=== PATIENT | female | born 1940 | race Caucasian/White ===

== ENCOUNTER 2017-11-14 22:01 | Inpatient (IN) | payer OTHER ==
[~2017-11-14] VITALS: Ht 165.1 cm; Wt 72.1 kg
[~2017-11-14 22:01] MED LIST: ALPRAZOLAM0.5 M4 PO; AUGMENTIN 875-1 EACH PO; MEDROL4 M2 PO
--- NOTE | 2017-11-14 22:05 | ED DYSPNEA/ASTHMA COMPLAINT ---
History of Present Illness General Chief Complaint: Dyspnea (COPD, CHF, Other) Stated Complaint: BIBA ASTHMA ATTACK Source: patient Exam Limitations: no limitations Vital Signs & Intake/Output Vital Signs & Intake/Output Vital Signs Date Time Temp Pulse Resp B/P B/P Pulse O2 O2 Flow FiO2 Mean Ox Delivery Rate 11/14 2230 90 11/14 2221 Nasal 2.0L Cannula 11/14 2218 24 89 Room Air 11/14 2207 98.2 115 20 149/77 92 Room Air ED Intake and Output 11/15 0000 11/14 1200 Intake Total Output Total Balance Patient 160 lb Weight Weight Reported by Patient Measurement Method Allergies Coded Allergies: No Known Allergies (03/22/16) Reconcile Medications Albuterol Sulfate (Ventolin Hfa) 90 MCG HFA.AER.AD 2 PUF INH AD PRN RESP. ( Reported) Albuterol Sulfate 2.5 MG/3 ML (0.083 %) VIAL.NEB 1 Vial INH/ARIANNA AD PRN RESP. (Reported) Cimetidine (Acid Go Go Dancer) (Unknown Strength) TABLET (Unknown Dose) PO PRN GI (Reported) Cod Liver Oil 1 EACH CAPSULE 1 CAP PO DAILY SUPPLEMENT (Reported) Meloxicam 7.5 MG TABLET 1 TAB PO DAILY PAIN/INFLAMMATION (Reported) Pantoprazole Sodium 40 MG TABLET.DR 1 TAB PO DAILY PRN GI (Reported) Triage Nurses Notes Reviewed? yes Onset: Gradual Duration: hour(s): Timing: recent history Severity: moderate Activities at Onset: "I was outside" Prior Episodes/Possible Cause: occasional episodes Modifying Factors: Improves With: rest. Associated Symptoms: cough, wheezing HPI: 77 yo woman h/o asthma h/o pollen allergies presents with cough,wheezing, dyspnea that began today. "I was outside this afternoon... the pollen is really bad around our home... I felt the wheezing and it was really hard to breath." No chest pain, phlegm, fever, lower extremity swelling. Past History Travel History Traveled to [place] past 21 day No Medical History Any Pertinent Medical History? 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 No Review of Systems Review of Systems Constitutional: Reports: no symptoms. EENTM: Reports: no symptoms. Respiratory: Reports: no symptoms. Cardiovascular: Reports: no symptoms. GI: Reports: no symptoms. Genitourinary: Reports: no symptoms. Musculoskeletal: Reports: no symptoms. Skin: Reports: no symptoms. Neurological/Psychological: Reports: no symptoms. Hematologic/Endocrine: Reports: no symptoms. Immunologic/Allergic: Reports: no symptoms. All Other Systems: Reviewed and Negative Physical Exam Physical Exam General Appearance: well developed/nourished, mild distress Head: atraumatic, normal appearance Eyes: Bilateral: normal appearance. Ears, Nose, Throat: normal pharynx, normal ENT inspection Neck: normal inspection, supple, full range of motion Respiratory: accessory muscle use, wheezing Comments: Review of Systems - except as otherwise noted in HPI Review of Systems Constitutional:no symptoms. EENTM:no symptoms. Respiratory:no symptoms. Cardiovascular:no symptoms. GI:no symptoms. Genitourinary:no symptoms. Musculoskeletal:no symptoms. Skin:no symptoms. Neurological/Psychological:no symptoms. Hematologic/Endocrine:no symptoms. Immunologic/Allergic:no symptoms. All Other Systems: Reviewed and Negative Physical Exam Physical Exam General Appearance: well developed/nourished, no apparent distress Head: atraumatic, normal appearance Eyes: Bilateral: normal appearance. Ears, Nose, Throat: normal pharynx, normal ENT inspection Neck: normal inspection, supple, full range of motion Respiratory: bilateral wheezing with prolonged expiratory phase. Cardiovascular: regular rate/rhythm Gastrointestinal: normal bowel sounds, soft, non-tender, no organomegaly Back: normal inspection, normal range of motion Extremities: normal inspection, normal capillary refill, normal range of motion, no edema Neurologic/Psych: no motor/sensory deficits, awake, alert, oriented x 3 Skin: intact, normal color, warm/dry Core Measures ACS in differential dx? No CVA/TIA Diagnosis No Sepsis Present: No Sepsis Focused Exam Completed? No Progress Differential Diagnosis: asthma, bronchitis, CHF, COPD Plan of Care: Orders Procedure Date/time Status Nothing by Mouth 11/15 B Active Saline Lock 11/15 42 Active Misc Message 11/15 42 Active ED Holding Orders 11/15 42 Active Admit to inpatient 11/15 42 Active Vital Signs 11/15 42 Active Code Status 05/26 0043 Active TROPONIN LEVEL 11/14 2204 Complete LIPASE 11/14 2204 Complete HEPATIC FUNCTION PANEL 11/14 2204 Complete CBC WITHOUT DIFFERENTIAL 11/14 2204 Complete BASIC METABOLIC PANEL 11/14 2204 Complete AMYLASE 11/14 2204 Complete EKG 11/14 2204 Active Laboratory Tests 11/14/172249: Anion Gap 13, Estimated GFR > 60, BUN/Creatinine Ratio 40.0 H, Glucose 134 H, Calcium 9.4, Total Bilirubin 0.5, Direct Bilirubin 0.2, AST 14, ALT 19, Alkaline Phosphatase 77, Troponin I 0.02, Total Protein 6.8, Albumin 3.9, Amylase 56, Lipase 133, CBC w Diff NO MAN DIFF REQ, RBC 4.74, MCV 93.8, MCH 31.5 H, MCHC 33.5, RDW 13.2, MPV 9.1, Gran % 84.7 H, Lymphocytes % 10.8 L, Monocytes % 3.5, Eosinophils % 0.7, Basophils % 0.3, Absolute Granulocytes 12.2 H, Absolute Lymphocytes 1.6, Absolute Monocytes 0.5, Absolute Eosinophils 0.1, Absolute Basophils 0 11/14/172204: D-Dimer High Sensitivty Cancelled Diagnostic Imaging: Viewed by Me: Radiology Read. Discussed w/RAD: Radiology Read. CXR Impression: PATIENT: ANAY MENDEZ PRESENT AGE : 77 PATIENT ACCOUNT NO: [id number] : 38 LOCATION: [facility] ORDERING PHYSICIAN: Sotero Arndt MD SERVICE DATE: 11/14/17 EXAM TYPE: RAD - XRY-PORTABLE CHEST XRAY EXAMINATION: CHEST 1 VIEW CLINICAL INFORMATION: Chest pain. COMPARISON: 01/26/2017. TECHNIQUE: An AP view of the chest is provided. FINDINGS: The cardiac silhouette is not enlarged. The mediastinal and hilar contours are unremarkable. There are neither pleural effusions nor pneumothoraces. There are no consolidations. The osseous structures are stable. IMPRESSION: No evidence for acute disease. DICTATED BY: Girish Neal MD DATE/ TIME DICTATED:11/14/172310 ARTS ADMINISTRATOR OR MANAGER:ANISA DATE/TIME TRANSCRIBED: 11/14/172310 CONFIDENTIAL, DO NOT COPY WITHOUT APPROPRIATE AUTHORIZATION. < Electronically signed in Other Vendor System> SIGNED BY: Girish Neal MD 11/14/17 4967 Initial ED EKG: sinus tach Departure Departure Disposition: STILL A PATIENT Condition: Stable Clinical Impression Primary Impression: Asthma exacerbation Referrals: Charlene Dunn MD (PCP/Family) Departure Forms: Customer Survey General Discharge Information Admission Note Spoke With: Norman Damian MD Documentation of Exam: Documentation of any treatments & extenuating circumstances including Concerns Regarding Discharge (functional status, medication knowledge or non-compliance, living conditions, etc.) that warrant an admission rather than observation: pt with asthma exacerbation, hypoxic to 89% on room air, merits steroids, nebs, 02 support, Critical Care Note Critical Care Note Critical Care Time: non-applicable
[2017-11-14] MEDS ORDERED: MELOXICAM7.5 M1 PO (22:24)
[2017-11-14] MEDS ORDERED: PANTOPRAZOLE SO40 M1 PO (22:24)
[2017-11-14] MEDS ORDERED: COD LIVER OIL1 EAC3 PO (22:25)
[2017-11-14] MEDS ORDERED: ACID REDUCER200 MG PO (22:25)
[2017-11-14] MEDS ORDERED: VENTOLIN HFA18 GM INH (22:25)
[2017-11-14] MEDS ORDERED: ALBUTEROL2.5 MG/3 M INH/SOL (22:26)
[2017-11-14 23:09] LABS: ABSOLUTE BASOPHIL COUNT 0 /CUMM (0.0-0.2); ABSOLUTE EOSINOPHIL COUNT 0.1 /CUMM (0.0-0.7); ABSOLUTE GRANULOCYTE CT 12.2 /CUMM (1.4-6.5); ABSOLUTE LYMPH COUNT 1.6 /CUMM (1.2-3.4); ABSOLUTE MONOCYTE COUNT 0.5 /CUMM (0.10-0.60); BASOPHIL % 0.3 % (0.0-2.0); EOSINOPHIL % 0.7 % (0-5); HEMATOCRIT 44.5 % (37-47); MEAN CORPUSCULAR HGB 31.5 PG (27.0-31.0); MEAN CORPUSCULAR HGB CONC 33.5 G/DL (33.0-37.0); MEAN CORPUSCULAR VOLUME 93.8 FL (81.0-99.0); MEAN PLATELET VOLUME 9.1 FL (7.4-10.4); PLATELET COUNT 237 /CUMM (130-400); RBC DISTRIBUTION WIDTH 13.2 % (11.5-14.5); RED BLOOD CELL CT 4.74 /CUMM (4.20-5.40); WHITE BLOOD CELL COUNT 14.4 /CUMM (4.8-10.8)
--- NOTE | 2017-11-14 23:15 | RADIOLOGY REPORT ---
EXAMINATION: CHEST 1 VIEW CLINICAL INFORMATION: Chest pain. COMPARISON: 01/26/2017. TECHNIQUE: An AP view of the chest is provided. FINDINGS: The cardiac silhouette is not enlarged. The mediastinal and hilar contours are unremarkable. There are neither pleural effusions nor pneumothoraces. There are no consolidations. The osseous structures are stable. IMPRESSION: No evidence for acute disease.
[2017-11-14 23:30] LABS: GRANULOCYTE % 84.7 % (42.2-75.2)
[2017-11-15 03:06] VITALS: BP 112/66
--- NOTE | 2017-11-15 03:13 | History & Physical ---
Maria G Varela 11/15/17 0312: General Information and HPI MD Statement: I have seen and personally examined ANAY MENDEZ and documented this H&P. The patient is a 77 year old F who presented with a patient stated chief complaint of [ASTHMA EXACERBATION ]. Source of Information: patient, family Exam Limitations: no limitations History of Present Illness: Patient is 77 years old female with PMH of asthma (diagnosed 2 years ago) and hiatal hernia came with a chief complain of runny nose, coughing, wheezing and difficifulty breathing that started yesterday. Patient states that she was doing well prior to that and feels that the pollen made her condition worse yesterday. She denies any fevers but reported of subjective chills. No sick contacts at home In ER her oxygen saturations were found to be 89 on room air so she was started on 2l of oxygen and her saturations came back up to 93 %. 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 Take no medication other than inhailers at home. Denies chest pain, headache, dizziness, abdominal discomfort, burning mituration. Patient hoever reported of one episode of loose stools last night. Allergies/Medications Allergies: Coded Allergies: No Known Allergies (03/22/16) Home Med list Albuterol Sulfate (Ventolin Hfa) 90 MCG HFA.AER.AD 2 PUF INH AD PRN RESP. ( Reported) Albuterol Sulfate 2.5 MG/3 ML (0.083 %) VIAL.NEB 1 Vial INH/ARIANNA AD PRN RESP. (Reported) Azithromycin 250 MG TABLET 1 TAB PO DAILY lungs . Budesonide/Formoterol Fumarate (Symbicort 80-4.5 Mcg Inhaler) 80 MCG-4.5 MCG/ ACTUATION HFA.AER.AD 2 PUF INH BID COPD . Cefuroxime Axetil (Cefuroxime) 500 MG TABLET 1 TAB PO BID Lungs . Cimetidine (Acid Certified Court/Medical Interpreter) 200 MG TABLET 1 TAB PO DAILY PRN GI (Reported) Cod Liver Oil 1 EACH CAPSULE 1 CAP PO DAILY SUPPLEMENT (Reported) Ergocalciferol (Vitamin D2) (Vitamin D2) 50,000 UNIT CAPSULE 1 CAP PO QW VIT D DEFICIENCY TAKE EVERY FRIDAY, ONCE A WEEK FOR 7 WEEKS THEN take OTC VIT D 2000 IU SUPPLEMENTS. Guaifenesin (Guaifenesin ER) 600 MG TAB.ER.12H 1 TAB PO Q12 PRN COUGH . Meloxicam 7.5 MG TABLET 1 TAB PO DAILY PAIN/INFLAMMATION (Reported) Pantoprazole Sodium 40 MG TABLET.DR 1 TAB PO DAILY PRN GI (Reported) Prednisone 10 MG TABLET 0 PO SEE ADMIN CRITERIA LUNGS . Tiotropium [place] (Spiriva) 18 MCG CAP.W.DEV 1 PUF INH DAILY SHORTNESS OF BREATH . 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 Home Services at Home: Oxygen Smoking Status: Former Smoker ETOH Use: denies use Review of Systems Review of Systems Constitutional: Reports: see HPI. Exam & Diagnostic Data Last 24 Hrs of Vital Signs/I&O Vital Signs Date Time Temp Pulse Resp B/P B/P Pulse O2 O2 Flow FiO2 Mean Ox Delivery Rate 11/15 0306 97.9 101 20 112/66 93 Nasal 2.0L Cannula 11/15 0300 93 Nasal 2.0L Cannula 11/15 0230 98.3 88 22 127/61 92 Nasal 2.0L Cannula 11/14 2230 90 11/14 2221 Nasal 2.0L Cannula 11/14 2218 24 89 Room Air 11/14 2207 98.2 115 20 149/77 92 Room Air Intake & Output 11/15 0800 11/15 0000 11/14 1600 Intake Total Output Total Balance Patient 77.196 kg 72.575 kg Weight Weight Bed scale Reported by Patient Measurement Method Physical Exam General Appearance Alert, Oriented X3, Cooperative, Mild Distress Skin No Breakdown Skin Temp/Moisture Exam: Warm/Dry HEENT Atraumatic, PERRLA Neck Supple Cardiovascular Regular Rate, Normal S1, Normal S2 Lungs diffuse b/l expiratory wheezes Abdomen Normal Bowel Sounds, Soft, No Tenderness Extremities No Edema Last 24 Hrs of Labs/Quique: Laboratory Tests 11/14/17 2250: Anion Gap 13, Estimated GFR > 60, BUN/Creatinine Ratio 40.0 H, Glucose 134 H, Calcium 9.4, Total Bilirubin 0.5, Direct Bilirubin 0.2, AST 14, ALT 19, Alkaline Phosphatase 77, Troponin I 0.02, Total Protein 6.8, Albumin 3.9, Amylase 56, Lipase 133, CBC w Diff NO MAN DIFF REQ, RBC 4.74, MCV 93.8, MCH 31.5 H, MCHC 33.5, RDW 13.2, MPV 9.1, Gran % 84.7 H, Lymphocytes % 10.8 L, Monocytes % 3.5, Eosinophils % 0.7, Basophils % 0.3, Absolute Granulocytes 12.2 H, Absolute Lymphocytes 1.6, Absolute Monocytes 0.5, Absolute Eosinophils 0.1, Absolute Basophils 0 11/14/17 2205: D-Dimer High Sensitivty Cancelled Assessment/Plan Assessment: Patient is 77 years old female with PMH of asthma (diagnosed 2 years ago) and hiatal hernia came with a chief complain of runny nose, coughing, wheezing and difficifulty breathing that started yesterday. Patient states that she was doing well prior to that and feels that the pollen made her condition worse yesterday. She denies any fevers but reported of subjective chills. No sick contacts at home In ER her oxygen saturations were found to be 89 on room air so she was started on 2l of oxygen and her saturations came back up to 93 %. 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 Take no medication other than inhailers at home. Denies chest pain, headache, dizziness, abdominal discomfort, burning mituration. Patient hoever reported of one episode of loose stools last night. labs and vitals as above CXR: No evidence for acute disease. Assessment and plan: Will admit the patient on GM floor, patient got 125 mg of solumedrol in ER, will continue 40 q8 and reassess in am. Will start her on IV fluids running at 75 cc/ hr. TRC nebs as needed, and will check peak flow Once stabalized, patient would most likly be discharged on PO prednisone taper. DVT ppx: alps and lovenox Patient is FC. As Ranked By This Provider Problem List: 1. Bronchitis 2. Dyspnea Core Measures/Misc (03/09) Acute Coronary Syndrome ACS Diagnosis: No Congestive Heart Failure Congestive Heart Failure Diagnosis No Cerebrovascular Accident CVA/TIA Diagnosis: No VTE (View Protocol) VTE Risk Factors Age>40 No Mechanical VTE Prophylaxis d/t N/A MechProphylax Ordered No VTE Pharm Prophylaxis d/t NA PharmProphylax ordered Sepsis (View protocol) Sepsis Present: No If YES complete Sepsis Event Note If YES complete Sepsis Event Note Rickie MENDEZ, [facility] 11/15/17 0543: Core Measures/Misc (03/09) Sepsis (View protocol) If YES complete Sepsis Event Note If YES complete Sepsis Event Note Attending MD Review Statement Attending Statement Attending MD Statement: examined this patient, discuss w/resident/PA/SAFETY PIN ASSEMBLING MACHINE OPERATOR, agreed w/resident/PA/SAFETY PIN ASSEMBLING MACHINE OPERATOR, discussed with family, reviewed images, amended to note Attending Assessment/Plan: 77 yo F with h/o GERD, asthma, HLD, osteopenia, ex-smoker, is here for evaluation of exertional dyspnea, wheezing and cough productive of yellow phlegm. Patient reports symptoms started 1 day prior with sore throat, rhinorrhea and post nasal drip, this led to the cough and difficulty breathing. She denies sick contacts or recent travel. She attributes her symptoms to the pollen. She was treated one month back (September) for bronchitis with prednisone and zpak. She reports being diagnosed with asthma 2 years ago, and denies having a diagnosis of COPD. However, given her smoking history it is highly likely. Vitals: afebrile, tachycardic, BP 112/66, sats 89% RA --> 92% on 2L. Exam: AAO, in mild respiratory distress, erythema noted to posterior pharynx, Chest b/l reduced air entry with expiratory wheeze. Labs: WBC 14.4, Na 147, BUN 32, glucose 134, LFTs normal, trop neg. CXR: no acute disease. EKG: sinus tachycardia, QTC 431. Echo (2017): EF > 60%, stage 1 diastolic dysfunction. Assessment and plan: 1. Acute hypoxic respiratory failure 2. Acute bronchitis with asthma exacerbation 3. Pollen seasonal allergies - Admit to General medicine - Sputum culture - Check flu swab - Check peak flows - IV solemedrol Q8 - TRC with nebs scheduled and PRN - Gentle hydration DVT ppx Lovenox. Full code.
--- NOTE | 2017-11-15 05:43 | Admission Certification ---
Admission Certification Certification Statement - As attending physician, I certify that at the time of - admission, based on clinical presentation, severity of - symptoms, need for further diagnostic testing and - therapeutic interventions, and risk of adverse outcomes - without in-hospital treatment, in my clinical assessment, - this patient requires an acute hospital stay for a minimum - of two nights or longer. I have also considered psychsocial - factors such as support system, advanced age, financial - issues, cognitive issues, and failed out-patient treatments, - past re-admission history, safety of patient, and lack of - compliance as applicable. Specific rationale supporting this admission is: Acute hypoxic respiratory failure, asthma exacerbation.
[2017-11-15 06:11] VITALS: BP 100/62
[2017-11-15 08:43] LABS: ABSOLUTE BASOPHIL COUNT 0 /CUMM (0.0-0.2); ABSOLUTE EOSINOPHIL COUNT 0 /CUMM (0.0-0.7); ABSOLUTE GRANULOCYTE CT 10.7 /CUMM (1.4-6.5); ABSOLUTE LYMPH COUNT 0.4 /CUMM (1.2-3.4); ABSOLUTE MONOCYTE COUNT 0 /CUMM (0.10-0.60); BASOPHIL % 0 % (0.0-2.0); EOSINOPHIL % 0 % (0-5); HEMATOCRIT 41.3 % (37-47); MEAN CORPUSCULAR HGB 32.2 PG (27.0-31.0); MEAN CORPUSCULAR VOLUME 94.8 FL (81.0-99.0); MEAN PLATELET VOLUME 9.2 FL (7.4-10.4); PLATELET COUNT 225 /CUMM (130-400); RED BLOOD CELL CT 4.36 /CUMM (4.20-5.40); WHITE BLOOD CELL COUNT 11.1 /CUMM (4.8-10.8)
[2017-11-15 10:26] LABS: GRANULOCYTE % 96.7 % (42.2-75.2)
--- NOTE | 2017-11-15 13:08 | PN- Att Addend ---
Attending Addendum Attending Brief Note 77-year-old female with past medical history significant for intermittent asthma , takes Ventolin as needed, has been admitted overnight for asthma exacerbation given a 2 day history of sore throat, rhinorrhea, cough, postnasal drip and shortness of breath with wheezing. She was seen and examined on the bedside, still short of breath, 2 L of oxygen via nasal cannula, on examination course crackles and expiratory wheeze Will get a pulmonary consult, will continue on IV Solu-Medrol every 8, around- the-clock TRC nebs, peak flow, start her on a PPI for epigastric discomfort empirically, DVT prophylaxis, follow further recommendations from the facilities management executive, continue to monitor
[2017-11-15 14:09] VITALS: BP 110/70
--- NOTE | 2017-11-15 14:14 | Cons- Pulmonary ---
General Information and HPI Consulting Request Date of Consult: 11/15/17 Requested By: med team History of Present Illness: Patient is 77 years old female with PMH of OLD (diagnosed 2 years ago) and hiatal hernia came with a chief complain of runny nose, coughing, wheezing and difficifulty breathing that started yesterday. Patient states that she was doing well prior to that and feels that the pollen made her condition worse yesterday. She denies any fevers but reported of subjective chills. No sick contacts at home In ER her oxygen saturations were found to be 89 on room air so she was started on 2l of oxygen and her saturations came back up to 93 %. 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 Harrison for pulmonary. Take no medication other than ventolin at home. Denies chest pain, headache, dizziness, abdominal discomfort, burning mituration. Patient hoever reported of one episode of loose stools last night. Allergies/Medications Allergies: Coded Allergies: No Known Allergies (03/22/16) Home Med List: Albuterol Sulfate (Ventolin Hfa) 90 MCG HFA.AER.AD 2 PUF INH AD PRN RESP. ( Reported) Albuterol Sulfate 2.5 MG/3 ML (0.083 %) VIAL.NEB 1 Vial INH/ARIANNA AD PRN RESP. (Reported) Cimetidine (Acid Parts Back Counter Man) (Unknown Strength) TABLET (Unknown Dose) PO PRN GI (Reported) Cod Liver Oil 1 EACH CAPSULE 1 CAP PO DAILY SUPPLEMENT (Reported) Meloxicam 7.5 MG TABLET 1 TAB PO DAILY PAIN/INFLAMMATION (Reported) Pantoprazole Sodium 40 MG TABLET.DR 1 TAB PO DAILY PRN GI (Reported) Review of Systems Review of Systems Constitutional: Reports: see HPI. 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 Home Services at Home: Oxygen Smoking Status: Former Smoker ETOH Use: denies use Exam & Diagnostic Data Last 24 Hrs of Vital Signs/I&O Vital Signs Date Time Temp Pulse Resp B/P B/P Pulse O2 O2 Flow FiO2 Mean Ox Delivery Rate 05/26 0921 Nasal 2.0L Cannula 11/15 0920 93 Nasal 2.0L Cannula 11/15 0800 95 Nasal 2.0L Cannula 11/15 0611 98.2 84 20 100/62 96 Nasal 2.0L Cannula 11/15 0306 97.9 101 20 112/66 93 Nasal 2.0L Cannula 11/15 0300 93 Nasal 2.0L Cannula 11/15 0230 98.3 88 22 127/61 92 Nasal 2.0L Cannula 11/14 2230 90 11/14 2221 Nasal 2.0L Cannula 11/14 2218 24 89 Room Air 11/14 2207 98.2 115 20 149/77 92 Room Air Intake & Output 11/15 1600 11/15 0800 11/15 0000 Intake Total 315 Output Total Balance 315 Intake, IV 75 Intake, Oral 240 Patient 170 lb 160 lb Weight Weight Bed scale Reported by Patient Measurement Method Last 48 Hrs of Labs/Quique: Laboratory Tests 11/15/17 0705: Anion Gap 11, Estimated GFR > 60, BUN/Creatinine Ratio 46.7 H, CBC w Diff NO MAN DIFF REQ, RBC 4.36, MCV 94.8, MCH 32.2 H, MCHC 34.0, RDW 13.0, MPV 9.2, Gran % 96.7 H, Lymphocytes % 3.2 L, Monocytes % 0.1 L, Eosinophils % 0, Basophils % 0, Absolute Granulocytes 10.7 H, Absolute Lymphocytes 0.4 L, Absolute Monocytes 0 L, Absolute Eosinophils 0, Absolute Basophils 0 11/14/17 2250: Anion Gap 13, Estimated GFR > 60, BUN/Creatinine Ratio 40.0 H, Glucose 134 H, Calcium 9.4, Total Bilirubin 0.5, Direct Bilirubin 0.2, AST 14, ALT 19, Alkaline Phosphatase 77, Troponin I 0.02, Total Protein 6.8, Albumin 3.9, Amylase 56, Lipase 133, CBC w Diff NO MAN DIFF REQ, RBC 4.74, MCV 93.8, MCH 31.5 H, MCHC 33.5, RDW 13.2, MPV 9.1, Gran % 84.7 H, Lymphocytes % 10.8 L, Monocytes % 3.5, Eosinophils % 0.7, Basophils % 0.3, Absolute Granulocytes 12.2 H, Absolute Lymphocytes 1.6, Absolute Monocytes 0.5, Absolute Eosinophils 0.1, Absolute Basophils 0 11/14/17 2205: D-Dimer High Sensitivty Cancelled Assessment/Plan Impression/Plan: General Appearance Alert, Oriented X3, Cooperative, Mild Distress Skin No Breakdown Skin Temp/Moisture Exam: Warm/Dry HEENT Atraumatic, PERRLA Neck Supple Cardiovascular Regular Rate, Normal S1, Normal S2 Lungs diffuse b/l expiratory wheezes Abdomen Normal Bowel Sounds, Soft, No Tenderness Extremities No Edema IMPRESSION This is a lady with history of significant smoking, obstructive lung disease with on and off wheezing probably significant COPD with an asthmatic component, hiatal hernia with GERD, hyperlipidemia, osteopenia, significant previous smoking history, recurrent bronchitis, stage I diastolic dysfunction, now comes in with * Acute COPD exacerbation with an asthmatic component * Leukocytosis with yellow-green sputum with a left shift suggestive of bacterial bronchitis * Previous history of significant smoking history rule out significant COPD * Patient does have asthmatic component with seasonal allergies * Hiatal hernia GERD with nonobstructing Schatzki ring with severe GERD 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
[2017-11-15 21:34] VITALS: BP 134/60
[2017-11-16 06:54] VITALS: BP 116/78
--- NOTE | 2017-11-16 08:43 | PN- Housestaff ---
Morgan MENDEZ,Nalini 11/16/17 0843: Subjective Follow-up For: asthma exacerbation Subjective: patient feels better than yesterday. she has a pronounced wheeze still. denies shortness of breath. states that she feels that she has mucus but cannot bring anything up. is on 2L o2. had peak flow this morning which was a poor effort. Review of Systems Constitutional: Reports: no symptoms. EENTM: Reports: no symptoms. Cardiovascular: Reports: no symptoms. Respiratory: Reports: see HPI, cough. Gastrointestinal: Reports: no symptoms. Genitourinary: Reports: no symptoms. Musculoskeletal: Reports: no symptoms. Skin: Reports: no symptoms. Objective Last 24 Hrs of Vital Signs/I&O Vital Signs Date Time Temp Pulse Resp B/P B/P Pulse O2 O2 Flow FiO2 Mean Ox Delivery Rate 11/16 2015 94 Nasal 2.0L Cannula 11/16 1554 Nasal 2.0L Cannula 11/16 1342 97.9 96 20 140/70 95 Nasal 2.0L Cannula 11/16 0850 94 Nasal 2.0L Cannula 11/16 0800 94 Nasal 2.0L Cannula 11/16 0654 97.6 78 20 116/78 95 Nasal 2.0L Cannula 11/16 0000 Nasal 2.0L Cannula 11/15 2134 97.9 103 20 134/60 94 Intake & Output 11/16 1600 11/16 0800 11/16 0000 Intake Total 500 480 700 Output Total Balance 500 480 700 Intake, Oral 500 480 700 Physical Exam General Appearance: Alert, Oriented X3, Cooperative Skin: No Rashes Skin Temp/Moisture Exam: Warm/Dry Sepsis Skin Exam (color): Normal for Ethnicity Cardiovascular: Regular Rate, Normal S1, Normal S2 Lungs: wheezes throughout Abdomen: Normal Bowel Sounds, Soft, No Tenderness Neurological: Normal Speech Extremities: No Clubbing, No Cyanosis, No Edema Current Medications: Current Medications Sig/Giovanni Start time Last Medication Dose Route Stop Time Status Admin Albuterol Sulfate 3 ML BID 11/15 0900 AC 11/16 INH 2011 Albuterol Sulfate 2 PUF Q4P PRN 11/15 0400 AC INH Budesonide/ 2 PUF BID 11/16 2100 AC 11/16 Formoterol Fumarate INH 2030 Cefuroxime Sodium 500 MG Q12H 11/15 1900 AC 11/16 PO 1906 Enoxaparin Sodium 40 MG DAILY 11/15 0900 11/16 SC 927 Guaifenesin 600 MG Q12 11/16 1115 AC 11/16 PO 2029 Ipratropium [place] 2.5 ML BID 11/15 09 AC 11/16 INH 2011 Methylprednisolone 40 MG Q8 11/15 0600 AC 11/16 IV 11/16 Omeprazole 40 MG DAILY AC 11/15 1844 AC 11/16 PO 050 Prednisone 60 MG DAILY 11/17 0900 AC PO Last 24 Hrs of Lab/Quique Results Last 24 Hrs of Labs/Mics: Laboratory Tests 11/16/17 0650: CBC w Diff NO MAN DIFF REQ, RBC 4.25, MCV 94.8, MCH 31.6 H, MCHC 33.3, RDW 13.1 , MPV 9.3, Gran % 91.0 H, Lymphocytes % 5.9 L, Monocytes % 3.1, Eosinophils % 0, Basophils % 0, Absolute Granulocytes 9.9 H, Absolute Lymphocytes 0.6 L, Absolute Monocytes 0.3, Absolute Eosinophils 0, Absolute Basophils 0 11/16/17 0640: Anion Gap 7, Estimated GFR > 60, BUN/Creatinine Ratio 46.7 H Microbiology 11/16 1650 LOWER RESP: Respiratory Culture - COLB 11/16 1650 LOWER RESP: Gram Stain - COLB Assessment/Plan Assessment: Patient is 77 years old female with PMH of asthma (diagnosed 2 years ago) and hiatal hernia came with a chief complain of runny nose, coughing, wheezing and difficifulty breathing that started yesterday. Patient states that she was doing well prior to that and feels that the pollen made her condition worse yesterday. She denies any fevers but reported of subjective chills. No sick contacts at home In ER her oxygen saturations were found to be 89 on room air so she was started on 2l of oxygen and her saturations came back up to 93 %. 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 Take no medication other than inhailers at home. Denies chest pain, headache, dizziness, abdominal discomfort, burning mituration. Patient hoever reported of one episode of loose stools last night. lab s and vitals as above. Leukocytosis with yellow-green sputum with a left shift suggestive of bacterial bronchitis Hiatal hernia GERD with nonobstructing Schatzki ring with severe GERD with distal thoracic esophageal neuromuscular incoordination seen by esophagogram which could also be contributing to her issues CXR: No evidence for acute disease. Assessment and plan: continue on steroids q8 with plan to switch to 60mg oral in am with 10 day taper. ceftin 500 bid for 7 days TRC nebs as needed, and will check peak flow qd PPi DVT ppx: alps and lovenox Patient is FC. Problem List: 1. Asthma exacerbation Pain Ratin Pain Location: na Pain Goal: Remain pain free Pain Plan: na Tomorrow's Labs & Rationales: libra Baptiste MD,Dayana 11/16/17 1233: Attending MD Review Statement Attending Statement Attending MD Statement: examined this patient, discuss w/resident/PA/PROTOTYPE MODEL MAKER, agreed w/resident/PA/PROTOTYPE MODEL MAKER, reviewed EMR data (avail), discussed with nursing, discussed with case mgmt, reviewed images Attending Assessment/Plan: 77-year-old female with past medical history significant for intermittent asthma , takes Ventolin as needed, has been admitted to the floor for asthma exacerbation given a 2 day history of sore throat, rhinorrhea, cough, postnasal drip and shortness of breath with wheezing. She was seen and examined on the bedside, still short of breath, requiring 2 L of oxygen via nasal cannula, on examination course crackles and expiratory wheeze. pulmonary consult apprecited, will continue on IV Solu-Medrol every 8 for today , [id number] TRC nebs, peak flow, add mucinex, cont on ceftin, start her on a PPI for epigastric discomfort empirically, DVT prophylaxis,
[2017-11-16 09:03] LABS: ABSOLUTE BASOPHIL COUNT 0 /CUMM (0.0-0.2); ABSOLUTE EOSINOPHIL COUNT 0 /CUMM (0.0-0.7); ABSOLUTE GRANULOCYTE CT 9.9 /CUMM (1.4-6.5); ABSOLUTE LYMPH COUNT 0.6 /CUMM (1.2-3.4); ABSOLUTE MONOCYTE COUNT 0.3 /CUMM (0.10-0.60); BASOPHIL % 0 % (0.0-2.0); EOSINOPHIL % 0 % (0-5); HEMATOCRIT 40.3 % (37-47); MEAN CORPUSCULAR HGB 31.6 PG (27.0-31.0); MEAN CORPUSCULAR HGB CONC 33.3 G/DL (33.0-37.0); MEAN CORPUSCULAR VOLUME 94.8 FL (81.0-99.0); MEAN PLATELET VOLUME 9.3 FL (7.4-10.4); PLATELET COUNT 236 /CUMM (130-400); RBC DISTRIBUTION WIDTH 13.1 % (11.5-14.5); RED BLOOD CELL CT 4.25 /CUMM (4.20-5.40); WHITE BLOOD CELL COUNT 10.8 /CUMM (4.8-10.8)
[2017-11-16 13:42] VITALS: BP 140/70
--- NOTE | 2017-11-16 15:47 | PN- Pulmonary ---
Subjective HPI/Critical Care Issues: DOing much better Wheezing ongoing coughing occ fatigue Objective Current Medications: Current Medications Sig/Giovanni Start time Last Medication Dose Route Stop Time Status Admin Albuterol Sulfate 3 ML BID 11/15 09 AC 11/16 INH 0848 Albuterol Sulfate 2 PUF Q4P PRN 11/15 0400 AC INH Cefuroxime Sodium 500 MG Q12H 11/15 1900 AC 11/16 PO 0509 Enoxaparin Sodium 40 MG DAILY 11/15 0900 AC 11/16 SC 0928 Guaifenesin 600 MG Q12 11/16 1115 AC 11/16 PO 1232 Ipratropium [place] 2.5 ML BID 11/15 09 AC 11/16 INH 0848 Methylprednisolone 40 MG Q8 11/15 06 AC 11/16 IV 1343 Omeprazole 40 MG DAILY AC 11/15 1844 AC 11/16 PO 0509 Sodium Chloride 1,000 ML Q13H 11/15 0500 DC 11/15 IV 11/15 1759 0532 Vital Signs & I&O Last 24 Hrs of Vitals and I&O: Vital Signs Date Time Temp Pulse Resp B/P B/P Pulse O2 O2 Flow FiO2 Mean Ox Delivery Rate 11/16 1342 97.9 96 20 140/70 95 Nasal 2.0L Cannula 11/16 0850 94 Nasal 2.0L Cannula 11/16 0800 94 Nasal 2.0L Cannula 11/16 0654 97.6 78 20 116/78 95 Nasal 2.0L Cannula 11/16 0000 Nasal 2.0L Cannula 11/15 2134 97.9 103 20 134/60 94 11/15 1938 96 Nasal 2.0L Cannula 11/15 1922 96 Nasal 2.0L Cannula 11/15 1552 Nasal 2.0L Cannula Intake & Output 11/16 1600 11/16 0800 11/16 0000 Intake Total 500 480 700 Output Total Balance 500 480 700 Intake, Oral 500 480 700 Impression/Plan Impression/Plan Impression/Plan: General Appearance Alert, Oriented X3, Cooperative, Mild Distress Skin No Breakdown Skin Temp/Moisture Exam: Warm/Dry HEENT Atraumatic, PERRLA Neck Supple Cardiovascular Regular Rate, Normal S1, Normal S2 Lungs diffuse b/l expiratory wheezes Abdomen Normal Bowel Sounds, Soft, No Tenderness Extremities No Edema IMPRESSION This is a lady with history of significant smoking, obstructive lung disease with on and off wheezing probably significant COPD with an asthmatic component, hiatal hernia with GERD, hyperlipidemia, osteopenia, significant previous smoking history, recurrent bronchitis, stage I diastolic dysfunction, now comes in with * IMproving Acute COPD exacerbation with an asthmatic component * Leukocytosis with yellow-green sputum with a left shift suggestive of bacterial bronchitis * Previous history of significant smoking history rule out significant COPD * Patient does have asthmatic component with seasonal allergies * Hiatal hernia GERD with nonobstructing Schatzki ring with severe GERD with distal thoracic esophageal neuromuscular incoordination seen by esophagogram which could also be contributing to her issues * Osteopenia Recommendation * Change to prednisone 60 mg qd in am and a 10 day taper * Ceftin 500 mg by mouth twice a day for seven days * Sputum culture * Continue albuterol and ipratropium nebulizer * Start symbicort 2 puff bid * Continue proton pump inhibitor * Keep the head of bed elevated * Ask respiratory to see whether she could have a bedside spirometry to evaluate her FEV1 tommorow
[2017-11-16 22:11] VITALS: BP 140/70
[2017-11-17 05:59] VITALS: BP 122/76
[2017-11-17 09:17] LABS: ABSOLUTE BASOPHIL COUNT 0 /CUMM (0.0-0.2); ABSOLUTE EOSINOPHIL COUNT 0 /CUMM (0.0-0.7); ABSOLUTE GRANULOCYTE CT 10.6 /CUMM (1.4-6.5); ABSOLUTE LYMPH COUNT 0.8 /CUMM (1.2-3.4); ABSOLUTE MONOCYTE COUNT 0.3 /CUMM (0.10-0.60); BASOPHIL % 0.1 % (0.0-2.0); EOSINOPHIL % 0 % (0-5); HEMATOCRIT 42.7 % (37-47); MEAN CORPUSCULAR HGB 31.8 PG (27.0-31.0); MEAN CORPUSCULAR HGB CONC 33.6 G/DL (33.0-37.0); MEAN CORPUSCULAR VOLUME 94.7 FL (81.0-99.0); MEAN PLATELET VOLUME 9.5 FL (7.4-10.4); PLATELET COUNT 253 /CUMM (130-400); RBC DISTRIBUTION WIDTH 13.3 % (11.5-14.5); RED BLOOD CELL CT 4.51 /CUMM (4.20-5.40); WHITE BLOOD CELL COUNT 11.7 /CUMM (4.8-10.8)
--- NOTE | 2017-11-17 10:12 | PN- Housestaff ---
Morgan MENDEZ,Nalini 11/17/17 1012: Subjective Follow-up For: asthma exacerbation Subjective: Patient seen today. She notes that she is weak on standing and "shaky". She notes some remaining shortness of breath and is currently on 1 L. She notes a "machinelike" sound in her chest and she breathes deeply. She denies any coughing. No nausea vomiting abdominal pain or chest pain. Review of Systems Constitutional: Reports: no symptoms. Cardiovascular: Reports: no symptoms. Respiratory: Reports: see HPI, short of breath. Gastrointestinal: Reports: no symptoms. Genitourinary: Reports: no symptoms. Musculoskeletal: Reports: no symptoms. Skin: Reports: no symptoms. Objective Last 24 Hrs of Vital Signs/I&O Vital Signs Date Time Temp Pulse Resp B/P B/P Pulse O2 O2 Flow FiO2 Mean Ox Delivery Rate 11/17 0828 95 Nasal 2.0L Cannula 11/17 0800 95 Nasal 2.0L Cannula 11/17 0559 97.7 76 20 122/76 96 Nasal 2.0L Cannula 11/17 0000 Nasal 2.0L Cannula 11/16 2211 97.7 76 20 140/70 95 11/16 2015 94 Nasal 2.0L Cannula 11/16 1554 Nasal 2.0L Cannula Intake & Output 11/17 1600 11/17 0800 11/17 0000 Intake Total 480 900 Output Total Balance 480 900 Intake, Oral 480 900 Physical Exam General Appearance: Alert, Oriented X3, Cooperative, No Acute Distress HEENT: Atraumatic, PERRLA, EOMI, Mucous Membr. moist/pink Neck: Supple, No JVD Cardiovascular: Regular Rate, Normal S1, Normal S2, No Murmurs Lungs: widespread rales Abdomen: Normal Bowel Sounds, Soft, No Tenderness Extremities: No Clubbing, No Cyanosis, No Edema, Normal Pulses Current Medications: Current Medications Sig/Giovanni Start time Last Medication Dose Route Stop Time Status Admin Albuterol Sulfate 3 ML BID 11/15 0900 AC 11/17 INH 0804 Albuterol Sulfate 2 PUF Q4P PRN 11/15 0400 AC INH Budesonide/ 2 PUF BID 11/16 2100 AC 11/17 Formoterol Fumarate INH 0820 Cefuroxime Sodium 500 MG Q12H 11/15 1900 AC 11/17 PO 0535 Enoxaparin Sodium 40 MG DAILY 11/15 0900 AC 11/17 SC 0821 Guaifenesin 600 MG Q12 11/16 1115 AC 11/17 PO 0821 Ipratropium [place] 2.5 ML BID 11/15 09 AC 11/17 INH 0804 Methylprednisolone 40 MG Q8 11/15 0600 DC 11/16 IV 11/16 Omeprazole 40 MG DAILY AC 11/15 1844 AC 11/17 PO 0535 Prednisone 60 MG DAILY 11/17 09 AC 11/17 PO 0821 Last 24 Hrs of Lab/Quique Results Last 24 Hrs of Labs/Mics: Laboratory Tests 11/17/17 0720: CBC w Diff NO MAN DIFF REQ, RBC 4.51, MCV 94.7, MCH 31.8 H, MCHC 33.6, RDW 13.3 , MPV 9.5, Gran % 90.8 H, Lymphocytes % 6.9 L, Monocytes % 2.2, Eosinophils % 0, Basophils % 0.1, Absolute Granulocytes 10.6 H, Absolute Lymphocytes 0.8 L, Absolute Monocytes 0.3, Absolute Eosinophils 0, Absolute Basophils 0 Microbiology 11/16 165 LOWER RESP: Respiratory Culture - CAN Cancelled: SPECIMEN NOT RECEIVED IN LABORATORY 11/16 1650 LOWER RESP: Gram Stain - CAN Cancelled: SPECIMEN NOT RECEIVED IN LABORATORY Assessment/Plan Assessment: Patient is 77 years old female with PMH of asthma (diagnosed 2 years ago) and hiatal hernia came with a chief complain of runny nose, coughing, wheezing and difficifulty breathing that started yesterday. Patient states that she was doing well prior to that and feels that the pollen made her condition worse yesterday. She denies any fevers but reported of subjective chills. No sick contacts at home In ER her oxygen saturations were found to be 89 on room air so she was started on 2l of oxygen and her saturations came back up to 93 %. 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 Harrison as her spooling operator. Take no medication other than inhailers at home. Denies chest pain, headache, dizziness, abdominal discomfort, burning mituration. Patient hoever reported of one episode of loose stools last night. lab s and vitals as above. Leukocytosis with yellow-green sputum with a left shift suggestive of bacterial bronchitis Hiatal hernia GERD with nonobstructing Schatzki ring with severe GERD with distal thoracic esophageal neuromuscular incoordination seen by esophagogram which could also be contributing to her issues CXR: No evidence for acute disease. Assessment and plan: as of this afternoon she is on 2L 95% sats wbc 10.8 to 11.7 (pt is on steroids) prednisone 60mg oral with 10 day taper. ceftin 500 bid for 7 days TRC nebs as needed, and will check peak flow qd follow pulm reccs PPi DVT ppx: alps and lovenox Patient is FC. Problem List: 1. Asthma exacerbation Pain Ratin Pain Location: na Pain Goal: Remain pain free Pain Plan: na Tomorrow's Labs & Rationales: taryn Baptiste MD,[place] 11/17/17 1131: Attending MD Review Statement Attending Statement Attending MD Statement: examined this patient, discuss w/resident/PA/FRONT DESK ATTENDANT, agreed w/resident/PA/FRONT DESK ATTENDANT, reviewed EMR data (avail), discussed with nursing, discussed with case mgmt, reviewed images, amended to note Attending Assessment/Plan: 77-year-old female with past medical history significant for intermittent asthma , takes Ventolin as needed, has been admitted to the floor for asthma exacerbation given a 2 day history of sore throat, rhinorrhea, cough, postnasal drip and shortness of breath with wheezing. She was seen and examined on the bedside, still requiring 2 L of oxygen via nasal cannula, on examination course crackles and expiratory wheeze. pulmonary consult apprecited, will switch over to oral prednisone 60 mg today with a 10 day taper on discharge, continue with [id number] TRC nebs, peak flow, mucinex, cont on ceftin, start her on a PPI for epigastric discomfort empirically, DVT prophylaxis, PT consult as the patient is weak and shaking.
[2017-11-17 10:31] LABS: GRANULOCYTE % 90.8 % (42.2-75.2)
--- NOTE | 2017-11-17 13:14 | PN- Pulmonary ---
Subjective HPI/Critical Care Issues: Doing well stable Objective Current Medications: Current Medications Sig/Giovanni Start time Last Medication Dose Route Stop Time Status Admin Albuterol Sulfate 3 ML BID 11/15 0900 AC 11/17 INH 0804 Albuterol Sulfate 2 PUF Q4P PRN 11/15 0400 AC INH Budesonide/ 2 PUF BID 11/16 2100 AC 11/17 Formoterol Fumarate INH 0820 Cefuroxime Sodium 500 MG Q12H 11/15 1900 AC 11/17 PO 0535 Enoxaparin Sodium 40 MG DAILY 11/15 0900 AC 11/17 SC 0821 Guaifenesin 600 MG Q12 11/16 1115 AC 11/17 PO 0821 Ipratropium [place] 2.5 ML BID 11/15 0900 AC 11/17 INH 0804 Methylprednisolone 40 MG Q8 11/15 0600 DC 11/16 IV 11/16 2354 2030 Omeprazole 40 MG DAILY AC 11/15 1844 AC 11/17 PO 0535 Prednisone 60 MG DAILY 11/17 0900 AC 11/17 PO 0821 Vital Signs & I&O Last 24 Hrs of Vitals and I&O: Vital Signs Date Time Temp Pulse Resp B/P B/P Pulse O2 O2 Flow FiO2 Mean Ox Delivery Rate 11/17 0828 95 Nasal 2.0L Cannula 11/17 0800 95 Nasal 2.0L Cannula 11/17 0559 97.7 76 20 122/76 96 Nasal 2.0L Cannula 11/17 0000 Nasal 2.0L Cannula 11/16 2211 97.7 76 20 140/70 95 11/16 2014 94 Nasal 2.0L Cannula 11/16 1554 Nasal 2.0L Cannula 11/16 1342 97.9 96 20 140/70 95 Nasal 2.0L Cannula Intake & Output 11/17 1600 11/17 0800 11/17 0000 Intake Total 480 900 Output Total Balance 480 900 Intake, Oral 480 900 Laboratory Tests 11/17 11/16 0720 0650 Hematology CBC w Diff NO MAN DIFF REQ NO MAN DIFF REQ WBC (4.8 - 10.8 /CUMM) 11.7 H 10.8 RBC (4.20 - 5.40 /CUMM) 4.51 4.25 Hgb (12.0 - 16.0 G/DL) 14.4 13.4 Hct (37 - 47 %) 42.7 40.3 MCV (81.0 - 99.0 FL) 94.7 94.8 MCH (27.0 - 31.0 PG) 31.8 H 31.6 H MCHC (33.0 - 37.0 G/DL) 33.6 33.3 RDW (11.5 - 14.5 %) 13.3 13.1 Plt Count (130 - 400 /CUMM) 253 236 MPV (7.4 - 10.4 FL) 9.5 9.3 Gran % (42.2 - 75.2 %) 90.8 H 91.0 H Lymphocytes % (20.5 - 51.1 %) 6.9 L 5.9 L Monocytes % (1.7 - 9.3 %) 2.2 3.1 Eosinophils % (0 - 5 %) 0 0 Basophils % (0.0 - 2.0 %) 0.1 0 Absolute Granulocytes (1.4 - 6.5 /CUMM) 10.6 H 9.9 H Absolute Lymphocytes (1.2 - 3.4 /CUMM) 0.8 L 0.6 L Absolute Monocytes (0.10 - 0.60 /CUMM) 0.3 0.3 Absolute Eosinophils (0.0 - 0.7 /CUMM) 0 0 Absolute Basophils (0.0 - 0.2 /CUMM) 0 0 11/16 0640 Chemistry Sodium (137 - 145 mmol/L) 141 Potassium (3.5 - 5.1 mmol/L) 4.1 Chloride (98 - 107 mmol/L) 105 Carbon Dioxide (22 - 30 mmol/L) 29 Anion Gap (5 - 16) 7 BUN (7 - 17 mg/dL) 28 H Creatinine (0.5 - 1.0 mg/dL) 0.6 Estimated GFR (>60 ml/min) > 60 BUN/Creatinine Ratio (7 - 25 %) 46.7 H Microbiology Date/Time Procedure - Status Source Growth 11/16 1651 Respiratory Culture - COLB LOWER RESP 11/16 1651 Gram Stain - COLB LOWER RESP 11/15 1437 Influenza Virus A & B Rapid Smear - COMP NASOPHARYN Impression/Plan Impression/Plan Impression/Plan: Impression/Plan: General Appearance Alert, Oriented X3, Cooperative, Mild Distress Skin No Breakdown Skin Temp/Moisture Exam: Warm/Dry HEENT Atraumatic, PERRLA Neck Supple Cardiovascular Regular Rate, Normal S1, Normal S2 Lungs diffuse b/l expiratory wheezes Abdomen Normal Bowel Sounds, Soft, No Tenderness Extremities No Edema IMPRESSION This is a lady with history of significant smoking, obstructive lung disease with on and off wheezing probably significant COPD with an asthmatic component, hiatal hernia with GERD, hyperlipidemia, osteopenia, significant previous smoking history, recurrent bronchitis, stage I diastolic dysfunction, now comes in with * IMproving Acute COPD exacerbation with an asthmatic component * Leukocytosis with yellow-green sputum with a left shift suggestive of bacterial bronchitis * Previous history of significant smoking history rule out significant COPD * Patient does have asthmatic component with seasonal allergies * Hiatal hernia GERD with nonobstructing Schatzki ring with severe GERD with distal thoracic esophageal neuromuscular incoordination seen by esophagogram which could also be contributing to her issues * Osteopenia Recommendation * Prednisone 60 mg qd and a 9 day taper * Ceftin 500 mg by mouth twice a day for seven days * Sputum culture * Continue albuterol and ipratropium nebulizer * Start symbicort 2 puff bid * Start spiriva qd from am * Continue proton pump inhibitor * Keep the head of bed elevated * wean oxygen off Prob dc in am
[2017-11-17 14:57] VITALS: BP 130/70
[2017-11-17 21:54] VITALS: BP 140/80
[2017-11-18 07:11] VITALS: BP 138/72
[2017-11-18] MEDS ORDERED: SPIRIVA18 MCG INH (07:53)
[2017-11-18] MEDS ORDERED: CEFUROXIME500 MG PO (08:13)
[2017-11-18] MEDS ORDERED: SYMBICORT 80-10.2 GM INH (08:14)
[2017-11-18] MEDS ORDERED: GUAIFENESIN ER600 MG PO (08:14)
[2017-11-18] MEDS ORDERED: PREDNISONE10 M2 PO (08:20)
--- NOTE | 2017-11-18 08:22 | Patient Discharge Instructions ---
Discharge Instructions General Discharge Information You were seen/treated for: COPD and asthma exacerbation Special Instructions: Please follow-up with your primary care doctor after discharge Please follow-up with your lung doctor after discharge Please finish antibiotic and steroid course as directed. Diet Continue normal diet: Yes Activity Activity Self Limited: Yes Acute Coronary Syndrome Inclusion Criteria At DC or during hospital stay patient has or had the following: ACS DIAGNOSIS No Discharge Core Measures Meds if any: Prescribed or Continued at Discharge Meds if any: NOT Prescribed or Continued at Discharge Congestive Heart Failure Inclusion Criteria At DC or during hospital stay patient has or had the following: CHF DIAGNOSIS No Discharge Core Measures Meds if any: Prescribed or Continued at Discharge Meds if any: NOT Prescribed or Continued at Discharge Cerebrovascular accident Inclusion Criteria At DC or during hospital stay patient has or had the following: CVA/TIA Diagnosis No Discharge Core Measures Meds if any: Prescribed or Continued at Discharge Meds if any: NOT Prescribed or Continued at Discharge Venous thromboembolism Inclusion Criteria VTE Diagnosis No VTE Type NONE VTE Confirmed by (Test) NONE Discharge Core Measures - Per Current guidelines, there needs to be overlap - treatment for the first 5 days of Warfarin therapy. - If discharged on Warfarin prior to 5 days of - overlap therapy, the patient will need to be - assessed for post discharge needs including - *Post discharge parental anticoagulation - *Warfarin and/or parental anticoagulation education - *Follow up date to check INR post discharge At least 5 days overlap therapy as Inpatient No Meds if any: Prescribed or Continued at Discharge Note: Overlap Therapy is Warfarin and Anticoagulant Meds if any: NOT Prescribed or Continued at Discharge
[2017-11-18 08:26] LABS: ABSOLUTE BASOPHIL COUNT 0 /CUMM (0.0-0.2); ABSOLUTE EOSINOPHIL COUNT 0 /CUMM (0.0-0.7); ABSOLUTE LYMPH COUNT 2.2 /CUMM (1.2-3.4); ABSOLUTE MONOCYTE COUNT 0.6 /CUMM (0.10-0.60); BASOPHIL % 0.2 % (0.0-2.0); EOSINOPHIL % 0.2 % (0-5); GRANULOCYTE % 73.7 % (42.2-75.2); HEMATOCRIT 43.8 % (37-47); MEAN CORPUSCULAR HGB 31.7 PG (27.0-31.0); MEAN CORPUSCULAR HGB CONC 33.5 G/DL (33.0-37.0); MEAN CORPUSCULAR VOLUME 94.7 FL (81.0-99.0); MEAN PLATELET VOLUME 8.9 FL (7.4-10.4); PLATELET COUNT 249 /CUMM (130-400); RBC DISTRIBUTION WIDTH 13.4 % (11.5-14.5); RED BLOOD CELL CT 4.62 /CUMM (4.20-5.40); WHITE BLOOD CELL COUNT 10.8 /CUMM (4.8-10.8)
--- NOTE | 2017-11-18 09:17 | PN- Pulmonary ---
Subjective HPI/Critical Care Issues: Still coughing Wheeze persists Objective Current Medications: Current Medications Sig/Giovanni Start time Last Medication Dose Route Stop Time Status Admin Albuterol Sulfate 3 ML BID 11/15 0900 AC 11/18 INH 0824 Albuterol Sulfate 2 PUF Q4P PRN 11/15 0400 AC INH Budesonide/ 2 PUF BID 11/16 2100 AC 11/17 Formoterol Fumarate INH 2121 Cefuroxime Sodium 500 MG Q12H 11/15 1900 AC 11/18 PO 0551 Enoxaparin Sodium 40 MG DAILY 11/15 0900 AC 11/17 SC 0821 Guaifenesin 600 MG Q12 11/16 1115 AC 11/17 PO 2121 Ipratropium [place] 2.5 ML BID 11/15 0900 AC 11/18 INH 0824 Omeprazole 40 MG DAILY AC 11/15 1844 AC 11/18 PO 0551 Prednisone 60 MG DAILY 11/17 0900 AC 11/17 PO 0821 Tiotropium [place] 1 PUF DAILY 11/18 0900 AC INH Vital Signs & I&O Last 24 Hrs of Vitals and I&O: Vital Signs Date Time Temp Pulse Resp B/P B/P Pulse O2 O2 Flow FiO2 Mean Ox Delivery Rate 11/18 0825 94 Nasal 2.0L Cannula 11/18 0711 97.5 74 20 138/72 96 Nasal 2.0L Cannula 11/18 0000 99 Nasal 2.0L Cannula 11/17 2154 97.8 88 20 140/80 99 11/17 2036 93 Nasal 2.0L Cannula 11/17 1600 95 Nasal 2.0L Cannula 11/17 1457 97.5 85 20 130/70 95 Nasal Cannula 11/17 1435 87 Room Air Room Air 11/17 1435 93 Room Air Room Air Intake & Output 11/18 1600 11/18 0800 11/18 0000 Intake Total 600 Output Total Balance 600 Intake, Oral 600 Number 0 Bowel Movements Patient 168 lb Weight Weight Bed scale Measurement Method Laboratory Tests 11/18 11/17 0730 0720 Hematology CBC w Diff NO MAN DIFF REQ NO MAN DIFF REQ WBC (4.8 - 10.8 /CUMM) 10.8 11.7 H RBC (4.20 - 5.40 /CUMM) 4.62 4.51 Hgb (12.0 - 16.0 G/DL) 14.6 14.4 Hct (37 - 47 %) 43.8 42.7 MCV (81.0 - 99.0 FL) 94.7 94.7 MCH (27.0 - 31.0 PG) 31.7 H 31.8 H MCHC (33.0 - 37.0 G/DL) 33.5 33.6 RDW (11.5 - 14.5 %) 13.4 13.3 Plt Count (130 - 400 /CUMM) 249 253 MPV (7.4 - 10.4 FL) 8.9 9.5 Gran % (42.2 - 75.2 %) 73.7 90.8 H Lymphocytes % (20.5 - 51.1 %) 20.7 6.9 L Monocytes % (1.7 - 9.3 %) 5.2 2.2 Eosinophils % (0 - 5 %) 0.2 0 Basophils % (0.0 - 2.0 %) 0.2 0.1 Absolute Granulocytes (1.4 - 6.5 /CUMM) 8.0 H 10.6 H Absolute Lymphocytes (1.2 - 3.4 /CUMM) 2.2 0.8 L Absolute Monocytes (0.10 - 0.60 /CUMM) 0.6 0.3 Absolute Eosinophils (0.0 - 0.7 /CUMM) 0 0 Absolute Basophils (0.0 - 0.2 /CUMM) 0 0 Microbiology Date/Time Procedure - Status Source Growth 11/16 1651 Respiratory Culture - CAN LOWER RESP Cancelled: SPECIMEN NOT RECEIVED IN LABORATORY 11/16 1650 Gram Stain - CAN LOWER RESP Cancelled: SPECIMEN NOT RECEIVED IN LABORATORY 11/15 1437 Influenza Virus A & B Rapid Smear - COMP NASOPHARYN Impression/Plan Impression/Plan Impression/Plan: General Appearance Alert, Oriented X3, Cooperative, Mild Distress Skin No Breakdown Skin Temp/Moisture Exam: Warm/Dry HEENT Atraumatic, PERRLA Neck Supple Cardiovascular Regular Rate, Normal S1, Normal S2 Lungs diffuse b/l expiratory wheezes Abdomen Normal Bowel Sounds, Soft, No Tenderness Extremities No Edema IMPRESSION This is a lady with history of significant smoking, obstructive lung disease with on and off wheezing probably significant COPD with an asthmatic component, hiatal hernia with GERD, hyperlipidemia, osteopenia, significant previous smoking history, recurrent bronchitis, stage I diastolic dysfunction, now comes in with * IMproving Acute COPD exacerbation with an asthmatic component, still wheezing however * Improving Leukocytosis with yellow-green sputum with a left shift suggestive of bacterial bronchitis * Previous history of significant smoking history rule out significant COPD * Patient does have asthmatic component with seasonal allergies * Hiatal hernia GERD with nonobstructing Schatzki ring with severe GERD with 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
--- NOTE | 2017-11-18 09:18 | PN- Housestaff ---
See Addendum Subjective Follow-up For: Acute COPD exacerbation with an asthmatic component bacterial bronchitis Subjective: Patient seen and examined. Resting comfortably. Currently on 2 L of nasal cannula. Not on home oxygen at baseline. Reports mild wheezing. No overnight acute events Review of Systems Constitutional: Reports: see HPI. Objective Last 24 Hrs of Vital Signs/I&O Vital Signs Date Time Temp Pulse Resp B/P B/P Pulse O2 O2 Flow FiO2 Mean Ox Delivery Rate 11/18 0825 94 Nasal 2.0L Cannula 11/18 0711 97.5 74 20 138/72 96 Nasal 2.0L Cannula 11/18 0000 99 Nasal 2.0L Cannula 11/17 2154 97.8 88 20 140/80 99 11/17 2036 93 Nasal 2.0L Cannula 11/17 1600 95 Nasal 2.0L Cannula 11/17 1457 97.5 85 20 130/70 95 Nasal Cannula 11/17 1435 87 Room Air Room Air 11/17 1435 93 Room Air Room Air Intake & Output 11/18 1600 11/18 0800 11/18 0000 Intake Total 600 Output Total Balance 600 Intake, Oral 600 Number 0 Bowel Movements Patient 168 lb Weight Weight Bed scale Measurement Method Physical Exam General Appearance: Alert, Oriented X3, Cooperative Cardiovascular: Normal S1, Normal S2 Lungs: DIFFUSE B/L WHEEZING Abdomen: Normal Bowel Sounds, Soft, No Tenderness Neurological: Normal Speech Current Medications: Current Medications Sig/Giovanni Start time Last Medication Dose Route Stop Time Status Admin Albuterol Sulfate 3 ML BID 11/15 09 AC 11/18 INH 0824 Albuterol Sulfate 2 PUF Q4P PRN 11/15 0400 AC INH Budesonide/ 2 PUF BID 11/16 2100 AC 11/18 Formoterol Fumarate INH 0916 Cefuroxime Sodium 500 MG Q12H 11/15 1900 AC 11/18 PO 0551 Enoxaparin Sodium 40 MG DAILY 11/15 09 AC 11/18 SC 0915 Guaifenesin 600 MG Q12 11/16 1115 AC 11/18 PO 0915 Ipratropium [place] 2.5 ML BID 11/15 0900 AC 11/18 INH 0824 Omeprazole 40 MG DAILY AC 11/15 1844 AC 11/18 PO 0551 Prednisone 60 MG DAILY 11/17 0900 AC 11/18 PO 0915 Tiotropium [place] 1 PUF DAILY 11/18 0900 AC 11/18 INH 0915 Last 24 Hrs of Lab/Quique Results Last 24 Hrs of Labs/Mics: Laboratory Tests 11/18/17 0730: CBC w Diff NO MAN DIFF REQ, RBC 4.62, MCV 94.7, MCH 31.7 H, MCHC 33.5, RDW 13.4 , MPV 8.9, Gran % 73.7, Lymphocytes % 20.7, Monocytes % 5.2, Eosinophils % 0.2, Basophils % 0.2, Absolute Granulocytes 8.0 H, Absolute Lymphocytes 2.2, Absolute Monocytes 0.6, Absolute Eosinophils 0, Absolute Basophils 0 Assessment/Plan Assessment: The patient is 77-year-old female who is currently being evaluated and treated for shortness of breath. It appears that patient had a COPD exacerbation with a component of asthma. She also had leukocytosis with with yellow-green sputum with a left shift suggestive of bacterial bronchitis. -Monitor fever and WBC count patient remains afebrile with resolution of white cell count -Continue prednisone taper as per pulmonology recommendations -Continue Spiriva Symbicort and Ventolin -Continue albuterol and ipratropium nebulizer -Oxygen saturation oxygen supplementation to maintain saturation above 92% right renal oxygen we will check ambulatory sats -Continue Ceftin 500 mg twice a day for total of 7 days -Patient has crackles at the left lung base will get a chest x-ray to rule out an is interstitial edema in setting of hx of stage I diastolic heart failure and any consolidation Full code/heart healthy diet/DVT prophylaxis with enoxaparin Problem List: 1. Bronchitis Pain Ratin Pain Location: none Pain Goal: Pain 4 or less Pain Plan: prn Tomorrow's Labs & Rationales: none
[2017-11-18] MEDS ORDERED: AZITHROMYCIN250 M1 PO ×2 (10:51→10:52)
--- NOTE | 2017-11-18 12:25 | RADIOLOGY REPORT ---
EXAMINATION: XR CHEST CLINICAL INFORMATION: Crackles at bases. History of diastolic heart failure. COMPARISON: 01/26/2017 and 11/14/2017 TECHNIQUE: 2 views of the chest were obtained. FINDINGS: Lungs are well expanded and clear. No pulmonary edema, consolidation or pleural effusion. There is chronic, smooth biapical pleural thickening -- unchanged compared to 01/26/2017. Cardiac silhouette remains normal in size. The hilar contours are normal. No acute findings in the degenerated thoracic spine. IMPRESSION: No acute cardiopulmonary disease.
[2017-11-18 15:13] VITALS: BP 120/80
[2017-11-18 22:51] VITALS: BP 112/64
[2017-11-19 06:29] VITALS: BP 116/70
--- NOTE | 2017-11-19 07:51 | PN- Housestaff ---
Jose MENDEZ,[facility] 11/19/17 0751: Subjective Follow-up For: Bacterial bronchitis COPD exacerbations Asthma exacerbation Subjective: Seen and examined. Feeling better. Stable to be discharged home. She was taken off oxygen supplementation this morning I was saturating 91% on room air with ambulation. Review of Systems Constitutional: Reports: see HPI. Objective Last 24 Hrs of Vital Signs/I&O Vital Signs Date Time Temp Pulse Resp B/P B/P Pulse O2 O2 Flow FiO2 Mean Ox Delivery Rate 11/19 0925 96 Nasal 0.5L Cannula 11/19 0800 92 Room Air 11/19 0629 97.4 92 20 116/70 95 Nasal 1.0L Cannula 11/19 0000 94 Nasal 1.0L Cannula 11/18 2251 97.6 86 20 112/64 92 Nasal 1.0L Cannula 11/18 2110 94 Nasal 1.0L Cannula 11/18 1513 99.6 86 20 120/80 93 Intake & Output 11/19 1600 11/19 0800 11/19 0000 Intake Total 180 120 Output Total Balance 180 120 Intake, Oral 180 120 Patient 159 lb Weight Physical Exam General Appearance: Alert, Oriented X3, Cooperative Skin: No Rashes Cardiovascular: Normal S1, Normal S2 Lungs: Clear to Auscultation Abdomen: Normal Bowel Sounds, Soft, No Hepatospenomegaly Neurological: Normal Speech Current Medications: Current Medications Sig/Giovanni Start time Last Medication Dose Route Stop Time Status Admin Albuterol Sulfate 3 ML BID 11/15 09 AC 11/19 INH 0921 Albuterol Sulfate 2 PUF Q4P PRN 11/15 0400 AC INH Azithromycin 250 MG DAILY 11/19 09 AC 11/19 PO 11/22 0901 0922 Budesonide/ 2 PUF BID 11/16 2100 AC 11/19 Formoterol Fumarate INH 0923 Cefuroxime Sodium 500 MG Q12H 11/15 1900 AC 11/19 PO 0604 Enoxaparin Sodium 40 MG DAILY 11/15 0900 AC 11/19 SC 0923 Ergocalciferol 50,000 IU ONCE ONE 11/19 0815 DC 11/19 PO 11/19 0816 0923 Guaifenesin 600 MG Q12 11/16 1115 AC 11/19 PO 0922 Ipratropium [place] 2.5 ML BID 11/15 0900 AC 11/19 INH 0921 Omeprazole 40 MG DAILY AC 11/15 1844 AC 11/19 PO 0604 Patient Medication 1 ED ONE ONE 11/19 1045 DC 11/19 Teaching ED 11/19 1046 1300 Polyethylene Glycol 17 GM DAILY 11/18 1313 AC 11/19 PO 0923 Prednisone 50 MG DAILY 11/19 0900 AC 11/19 PO 11/20 0901 0922 Senna/Docusate Sodium 1 TAB BID 11/18 1313 AC 11/19 PO 0922 Tiotropium [place] 1 PUF DAILY 11/18 0900 AC 11/19 INH 0923 Assessment/Plan Assessment: The patient is 77-year-old female who is currently being evaluated and treated for shortness of breath. It appears that patient had a COPD exacerbation with a component of asthma. She also had leukocytosis with with yellow-green sputum with a left shift suggestive of bacterial bronchitis. -Monitor fever and WBC count patient remains afebrile with resolution of white cell count -Continue prednisone taper as per pulmonology recommendations -Continue Spiriva Symbicort and Ventolin -Continue albuterol and ipratropium nebulizer -She was taken off oxygen supplementation this morning I was saturating 91% on room air with ambulation. -Continue Ceftin 500 mg twice a day for total of 7 days -Finish azithromycin 5 day course Patient was complaining of feeling tired vitamin D level showed vitamin D deficiency she has been started on supplementation 9. TSH was low however T4 was normal so most likely secondary to sick euthyroid syndrome Full code/heart healthy diet/DVT prophylaxis with enoxaparin Problem List: 1. Asthma exacerbation 2. Bronchitis Pain Ratin Pain Location: n/a Pain Goal: Pain 4 or less Pain Plan: prn Tomorrow's Labs & Rationales: none Chela Forde MD 11/19/17 1246: Attending MD Review Statement Attending Statement Attending MD Statement: examined this patient, discuss w/resident/PA/SCRAP PILER, agreed w/resident/PA/SCRAP PILER, reviewed EMR data (avail), discussed with nursing, discussed with case mgmt, amended to note Attending Assessment/Plan: Patient seen and examined. Resting comfortably not in any acute distress. No issues overnight. No new complaints this morning. She was taken off oxygen supplementation this morning I was saturating 91% on room air with ambulation. On examination she has adequate entry bilaterally with no added sounds. Chest x -ray done yesterday showed no acute pathology. She is medically stable to be discharged home today I will follow-up with pulmonology service as an outpatient.
[2017-11-19] MEDS ORDERED: VITAMIN D250000 UNIT PO ×3 (08:08→14:38)
[2017-11-19] MEDS ORDERED: AZITHROMYCIN250 M1 PO ×2 (08:10→14:37)
[2017-11-19] MEDS ORDERED: CEFUROXIME500 MG PO ×2 (08:10→14:37)
--- NOTE | 2017-11-19 09:58 | Discharge Summary ---
Visit Information Visit Dates Admission Date: 11/15/17 Discharge Date: 11/19/17 Hospital Course Course Attending Physician: Chela Forde MD Primary Care Physician: Shaun MENDEZ,[facility] Course: The patient is 77-year-old female who is currently being evaluated and treated for shortness of breath. It appears that patient had a COPD exacerbation with a component of asthma. She also had leukocytosis with with yellow-green sputum with a left shift suggestive of bacterial bronchitis. -Monitor fever and WBC count patient remains afebrile with resolution of white cell count -Continue prednisone taper as per pulmonology recommendations -Continue Spiriva Symbicort and Ventolin -Continue albuterol and ipratropium nebulizer -She was taken off oxygen supplementation this morning I was saturating 91% on room air with ambulation. -Continue Ceftin 500 mg twice a day for total of 7 days -Finish azithromycin 5 day course Patient was complaining of feeling tired vitamin D level showed vitamin D deficiency she has been started on supplementation 9. TSH was low however T4 was normal so most likely secondary to sick euthyroid syndrome Full code/heart healthy diet/DVT prophylaxis with enoxaparin Allergies: Coded Allergies: No Known Allergies (03/22/16) Discharge Instructions Medications at Discharge Discharge Medications: Continue taking these medications: Meloxicam (Meloxicam) 7.5 MG TABLET 1 Tablet ORAL DAILY Qty = 30 Comments: DID NOT TAKE IN THE HOSPITAL Pantoprazole Sodium (Pantoprazole Sodium) 40 MG TABLET.DR 1 Tablet ORAL DAILY as needed for GI Comments: Last Taken:11/19/17 Time:0600 AM Cimetidine (Acid [employer] Teacher) 200 MG TABLET 1 Tablet ORAL DAILY as needed for GI Comments: DID NOT TAKE IN THE HOSPITAL Cod Liver Oil (Cod Liver Oil) 1 EACH CAPSULE 1 Capsule ORAL DAILY Comments: DID NOT TAKE IN THE HOSPITAL Albuterol Sulfate (Ventolin Hfa) 90 MCG HFA.AER.AD 2 Puff Inhale through mouth As Directed as needed for RESP. Qty = 18 Comments: DID NOT TAKE IN THE HOSPITAL Albuterol Sulfate (Albuterol Sulfate) 2.5 MG/3 ML (0.083 %) VIAL.NEB 1 Vial Inhale Solution As Directed as needed for RESP. Comments: Last Taken:11/19/17 Time:0930 AM Start taking the following new medications: Prednisone (Prednisone) 10 MG TABLET 0 ORAL SEE INSTRUCTIONS Qty = 30 No Refills Instructions: . Comments: Last Taken:11/19/17 Time: 09:30 AM 50MG TAKE 50MG 5 PILLS ON 11/20 TAKE 40MG 4 PILLS ON 06/23, 06/24 TAKE 30MG 3 PILLS ON 06/25, 06/26 TAKE 20MG 2 PILLS ON 06/27, 06/28 TAKE 10MG 1 PILL ON 06/29, 06/30 Cefuroxime Axetil (Cefuroxime) 500 MG TABLET 1 Tablet ORAL TWICE DAILY Qty = 6 No Refills Instructions: . Comments: Last Taken:11/19/17 Time:0600 AM Azithromycin (Azithromycin) 250 MG TABLET 1 Tablet ORAL DAILY Qty = 3 No Refills Instructions: . Comments: Last Taken:11/19/17 Time:0930 AM Tiotropium [place] (Spiriva) 18 MCG CAP.W.DEV 1 Puff Inhale through mouth DAILY Qty = 1 No Refills Instructions: . Comments: Last Taken:11/19/17 Time:09:30 AM Budesonide/Formoterol Fumarate (Symbicort 80-4.5 Mcg Inhaler) 80 MCG-4.5 MCG/ ACTUATION HFA.AER.AD 2 Puff Inhale through mouth TWICE DAILY Qty = 1 No Refills Instructions: . Comments: Last Taken:11/19/17 Time:0930 AM Guaifenesin (Guaifenesin ER) 600 MG TAB.ER.12H 1 Tablet ORAL EVERY 12 HOURS as needed for COUGH Qty = 15 No Refills Instructions: . Comments: Last Taken:11/19/17 Time:0930 AM Ergocalciferol (Vitamin D2) (Vitamin D2) 50,000 UNIT CAPSULE 1 Capsule ORAL Once a Week Qty = 7 No Refills Instructions: TAKE EVERY FRIDAY, ONCE A WEEK FOR 7 WEEKS THEN take OTC VIT D 2000 IU SUPPLEMENTS. Comments: Last Taken:11/19/17 Time:0930 AM Attending MD Review Statement Documenting Attending: Chela Forde MD Other Findings: Patient is medically stable to be discharged home today. Following discharge today, I received a call from her pharmacy. Her insurance company did not approve Spiriva. This was discussed with Dr Teague who suggested therapeutic substitution with Incruse (Umeclidinium) whic was approved by her insurance company.
--- NOTE | 2017-11-19 13:38 | PN- Pulmonary ---
Subjective HPI/Critical Care Issues: Doing ok stable still wheezing now off oxygen sputum occ Objective Current Medications: Current Medications Sig/Giovanni Start time Last Medication Dose Route Stop Time Status Admin Albuterol Sulfate 3 ML BID 11/15 0900 AC 11/19 INH 0921 Albuterol Sulfate 2 PUF Q4P PRN 11/15 0400 AC INH Azithromycin 250 MG DAILY 11/19 0900 AC 11/19 PO 11/22 0901 0922 Budesonide/ 2 PUF BID 11/16 2100 AC 11/19 Formoterol Fumarate INH 0923 Cefuroxime Sodium 500 MG Q12H 11/15 1900 AC 11/19 PO 0604 Enoxaparin Sodium 40 MG DAILY 11/15 0900 AC 11/19 SC 0923 Ergocalciferol 50,000 IU ONCE ONE 11/19 0815 DC 11/19 PO 11/19 0816 0923 Guaifenesin 600 MG Q12 11/16 1115 AC 11/19 PO 0922 Ipratropium [place] 2.5 ML BID 11/15 0900 AC 11/19 INH 0921 Omeprazole 40 MG DAILY AC 11/15 1844 AC 11/19 PO 0604 Patient Medication 1 ED ONE ONE 11/19 1045 DC 11/19 Teaching ED 11/19 1046 1300 Polyethylene Glycol 17 GM DAILY 11/18 1313 AC 11/19 PO 0923 Prednisone 50 MG DAILY 11/19 0900 AC 11/19 PO 11/20 0901 0922 Senna/Docusate Sodium 1 TAB BID 11/18 1313 AC 11/19 PO 0922 Tiotropium [place] 1 PUF DAILY 11/18 0900 AC 11/19 INH 0923 Vital Signs & I&O Last 24 Hrs of Vitals and I&O: Vital Signs Date Time Temp Pulse Resp B/P B/P Pulse O2 O2 Flow FiO2 Mean Ox Delivery Rate 11/19 0925 96 Nasal 0.5L Cannula 11/19 0800 92 Room Air 11/19 0629 97.4 92 20 116/70 95 Nasal 1.0L Cannula 11/19 0000 94 Nasal 1.0L Cannula 11/18 2251 97.6 86 20 112/64 92 Nasal 1.0L Cannula 11/18 2110 94 Nasal 1.0L Cannula 11/18 1513 99.6 86 20 120/80 93 Intake & Output 11/19 1600 11/19 0800 05/30 0000 Intake Total 180 120 Output Total Balance 180 120 Intake, Oral 180 120 Patient 159 lb Weight Impression/Plan Impression/Plan Impression/Plan: General Appearance Alert, Oriented X3, Cooperative, Mild Distress Skin No Breakdown Skin Temp/Moisture Exam: Warm/Dry HEENT Atraumatic, PERRLA Neck Supple Cardiovascular Regular Rate, Normal S1, Normal S2 Lungs diffuse b/l expiratory wheezes Abdomen Normal Bowel Sounds, Soft, No Tenderness Extremities No Edema IMPRESSION This is a lady with history of significant smoking, obstructive lung disease with on and off wheezing probably significant COPD with an asthmatic component, hiatal hernia with GERD, hyperlipidemia, osteopenia, significant previous smoking history, recurrent bronchitis, stage I diastolic dysfunction, now comes in with * IMproving Acute COPD exacerbation with an asthmatic component * Improving Leukocytosis with yellow-green sputum with a left shift suggestive of bacterial bronchitis * Previous history of significant smoking history rule out significant COPD * Patient does have asthmatic component with seasonal allergies * Hiatal hernia GERD with nonobstructing Schatzki ring with severe GERD with 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
[2017-11-19] MEDS ORDERED: SPIRIVA18 MCG INH (14:37)
[2017-11-19] MEDS ORDERED: SYMBICORT 80-10.2 GM INH (14:37)
[2017-11-19] MEDS ORDERED: GUAIFENESIN ER600 MG PO (14:37)
[2017-11-19] MEDS ORDERED: PREDNISONE10 M2 PO (14:37)
== END 2017-11-19 14:30 | disposition home health service (06) | DRG 190 ==
LOC: ERH 22:01 → ERHI 11-15 00:43 → 2NA 11-15 00:43 → ENRESERV 11-15 01:43 → 2NA 11-15 02:46 → ENPENDDIS 11-19 10:57 → ENTRNSPT 11-19 14:07 → EDTRNSPTSTS 11-19 14:22 → EDTRNSPT 11-19 14:22 → 2NA 11-19 14:30 → CMPTRNSPT 11-19 15:05
PROVIDERS: Internal Medicine; Pediatrics; Student in an Organized Health Care Education/Training Program
DX: J44.1 Chronic obstructive pulmonary disease with (acute) exacerbation (principal); J96.01 Acute respiratory failure with hypoxia; J45.901 Unspecified asthma with (acute) exacerbation; J44.0 Chronic obstructive pulmonary disease with (acute) lower respiratory infection; J20.9 Acute bronchitis, unspecified; M85.80 Other specified disorders of bone density and structure, unspecified site; K44.9 Diaphragmatic hernia without obstruction or gangrene; K21.9 Gastro-esophageal reflux disease without esophagitis; Z87.891 Personal history of nicotine dependence; A49.9 Bacterial infection, unspecified; Z79.51 Long term (current) use of inhaled steroids; Z79.52 Long term (current) use of systemic steroids; K22.2 Esophageal obstruction
CPT/HCPCS: 2NASP; 36592; 71045; 71046; 82436; 87070; 87804; 87804-59; 93005; 93010; 96374; J0456; J1650; J2920; J2930; J3490